=== PATIENT | male | born 1970 | race Caucasian/White ===

== ENCOUNTER 2019-10-04 22:32 | Emergency (ER) | payer BC, OTHER ==
[~2019-10-04] VITALS: Ht 188 cm; Wt 122.0 kg
[2019-10-04 22:41] VITALS: BP 168/129
[2019-10-05] MEDS ORDERED: cefTRIAXone IV Push 1 GM VIAL. IVP ONE (00:45)
[2019-10-05] MEDS ORDERED: AMOX1TAB61 PO (00:58)
--- NOTE | 2019-10-05 00:58 | PHYS DOC ---
Past Medical History Past Medical History: Hypertension Past Surgical History: Appendectomy Smoking Status: Current Every Day Smoker Additional Information: SMOKELESS TOBACCO Alcohol Use: Occasionally General Adult EDM: Chief Complaint: LOWER EXT PAIN HPI: HPI: Patient is a 48 year old male who presents with concern regarding injury to his left ankle. Patient indicates that he accidentally bumped it while he was pressure washing and he has been taking some Keflex. Patient states that he is continuing to have swelling to the foot and is concerned about infection. [] Review of Systems: Review of Systems: Constitutional: Denies fever or chills. [] Respiratory: Denies cough or shortness of breath. [] Cardiovascular: Denies chest pain or edema. [] Musculoskeletal: Complains of left foot injury/swelling/pain. [] Neurologic: Denies headache, focal weakness or sensory changes. [] Heart Score: Risk Factors: Risk Factors: DM, Current or recent (<one month) smoker, HTN, HLP, family history of CAD, obesity. Risk Scores: Score 0 - 3: 2.5% MACE over next 6 weeks - Discharge Home Score 4 - 6: 20.3% MACE over next 6 weeks - Admit for Clinical Observation Score 7 - 10: 72.7% MACE over next 6 weeks - Early Invasive Strategies Current Medications: Current Medications Medications (Trade) Dose Ordered Sig/Benoit Start Time Stop Time Status Last Admin Dose Admin Ceftriaxone Sodium (Rocephin) 1 gm 1X ONCE 10/05/19 00:45 10/05/19 00:48 DC Allergies: Allergies: Allergies Coded Allergies Type Severity Reaction Last Updated Verified No Known Drug Allergies 10/04/19 No Physical Exam: PE: Constitutional: Well developed, well nourished, no acute distress, non-toxic appearance. [] Cardiovascular: Regular rate and rhythm [] Lungs & Thorax: Bilateral breath sounds clear to auscultation [] Abdomen: Bowel sounds normal, soft, no tenderness. [] Skin: Warm, dry, no erythema, no rash. There is a well-healing wound to the medial aspect of the left ankle [] Extremities: Left foot and ankle demonstrates edema and warmth. [] Current Patient Data: Vital Signs: Vital Signs Date Time Temp Pulse Resp B/P (MAP) Pulse Ox O2 Delivery O2 Flow Rate FiO2 10/04/19 22:41 97.7 71 14 168/129 (142) 99 Room Air 97.7 EKG: EKG: [] Radiology/Procedures: Radiology/Procedures: [] Course & Med Decision Making: Course & Med Decision Making Pertinent Labs and Imaging studies reviewed. (See chart for details) [] Dragon Disclaimer: Dragon Disclaimer: This electronic medical record was generated, in whole or in part, using a voice recognition dictation system. Departure Departure Impression: Primary Impression: Wound of left foot Disposition: HOME, SELF-CARE Condition: STABLE Referrals: ANTONELLA PINTO MD (PCP) Patient Instructions: Wound Check, Wound Infection Scripts Amoxicillin/Potassium Clav (AUGMENTIN 875-125 TABLET) 1 Each Tablet 1 TAB PO BID for 10 Days, #20 TAB 0 Refills Prov: MIKIE CARDOZA Jr. DO 10/05/19 Justicifation of Admission Dx: Justifications for Admission: Justification of Admission Dx: N/A MIKIE CARDOZA Jr. DO Oct 05, 2019 00:58
== END 2019-10-05 01:27 | disposition home or self-care (01) ==
LOC: ER 22:32
DX: S91.302A Unspecified open wound, left foot, initial encounter (principal); I10 Essential (primary) hypertension; Z72.0 Tobacco use; W22.8XXA Striking against or struck by other objects, initial encounter; Y93.89 Activity, other specified; Y92.89 Other specified places as the place of occurrence of the external cause; Y99.8 Other external cause status
CPT/HCPCS: 96374; 99283; J0696